=== PATIENT | female | born 1980 | race American Indian/Alaskan Native ===

== ENCOUNTER 2019-01-26 11:42 | Emergency (ER) | payer SELFPAY ==
--- NOTE | 2019-01-26 12:05 | Emergency Department Report ---
Chief Complaint: Upper Respiratory Infection Stated Complaint: COLD SX Time Seen by Provider: 01/26/19 12:00 - HPI History of Present Illness: pt presents for dry cough, sneezing that began a week ago +seasonal allergies has not taken anything no fever no V/D no PMHx no daily meds no allergies to medication +smoker 7-8 cigarettes a day occ drinker no drug use all other systems reviewed and negative regular rate and rhythm, no murmur normal breath sounds bilaterally, no w/r/r pale boggy turbinates normal oropharynx, no tonsillar exudates or hypertrophy A&Ox3 normal affect and mood skin is warm, dry, intact normal appearance of eye, PERRL MSE screening note: Focused history and physical exam performed. ED Medical Decision Making - Medical Decision Making heart and lung sounds are normal. examination consistent with seasonal allergies. pt given flonase and zyrtec. vitals are stable. advised to follow up with PCP in the next 2-3 days. return to the emergency room for any new or worsening symptoms ED Disposition for MSE Clinical Impression: Seasonal allergies Disposition: TO HOME OR SELFCARE Is pt being admited?: No Does the pt Need Aspirin: No Condition: Stable Instructions: Allergies (ED) Additional Instructions: please take medication as prescribed. Alternate tylenol or motrin every 4 hours as needed for a temperature of 100.4 or greater. continue drinking plenty of fluids. return to the emergency room for any new or worsening symptoms. follow up with your primary care doctor in the next 2-3 days. Prescriptions: Fluticasone [Flonase] 1 spray NS QDAY #1 bottle Cetirizine HCl [ZyrTEC 10mg cap] 10 mg PO DAILY #30 capsule Referrals: LUIS MACHADO MD [Primary Care Provider] - 2-3 Days [facility] [Provider Group] - 2-3 Days Time of Disposition: 13:15 Print Language: BARBADIAN
[2019-01-26 12:45] VITALS: BP 143/97
== END 2019-01-26 13:19 | disposition home or self-care (01) ==
LOC: ED 11:42
DX: J30.2 Other seasonal allergic rhinitis (principal); F17.200 Nicotine dependence, unspecified, uncomplicated
CPT/HCPCS: 99282